=== PATIENT | female | born 1995 | race Caucasian/White ===

== ENCOUNTER 2023-04-24 20:05 | Outpatient (CLI) | payer MEDICAID, SELFPAY ==
[2023-04-24 20:20] VITALS: BMI 32.2
[2023-04-24 20:29] VITALS: BP 134/84; PULSE 55; PULSE 56; O2SAT 100
[2023-04-24 20:33] VITALS: TEMP 37.1; O2SAT 98
== END 2023-04-24 23:06 | disposition home or self-care (01) ==
LOC: WPOUT 20:19 → WP 20:19
PROVIDERS: Referring Provider Advanced Practice Midwife; Visit Provider Advanced Practice Midwife
DX: O47.1 False labor at or after 37 completed weeks of gestation (principal); Z79.82 Long term (current) use of aspirin; Z87.891 Personal history of nicotine dependence; Z3A.41 41 weeks gestation of pregnancy
CPT/HCPCS: 59025; 59050; G0378 ×2; 99221

== ENCOUNTER 2023-04-25 02:30 | Inpatient (IN) | payer MEDICAID, SELFPAY ==
[2023-04-25] VITALS (91 sets, daily range): BP systolic 88–147; BP diastolic 45–87; PULSE 45–101; RESP 147; TEMP 36.1–37.9; O2SAT 80–100; BMI 32.3
[2023-04-25] MEDS: Lactated Ringers 1,000 ML 200 ML IV ×3 (03:05→15:25)
[2023-04-25] MEDS: LACTATED RINGERS 500 ML 999 ML IV ×3 (03:05→11:30)
[2023-04-25 03:14] LABS: Absolute Lymphocyte Count 1.38 X10^3/uL (0.83-4.51); Absolute Neutrophil Count 12.9 X10^3/uL (2.0-7.7); Basophil# 0.03 X10^3/uL; Basophil% 0.2 % (0-1); Eosinophil# 0.01 X10^3/uL; Eosinophils% 0.1 % (0-5); Hematocrit 36.9 % (37-47); Hemoglobin 13.1 g/dL (12.0-15.0); Lymphocyte # 1.38 X10^3/ul (0.83-4.51); Lymphocyte % 9.3 % (19-41); Mean Corp Hgb Conc 35.5 g/dL (32-36); Mean Corpuscular Hgb 33.3 pg (27.0-32.0); Mean Corpuscular Volume 93.9 fL (81-99); Mean Platelet Vol. 9.8 fl (6.2-12.0); Monocyte# 0.44 X10^3/uL; NRBC Flagged by Analyzer 0 % (0-5); Neutrophil # 12.92 X10^3/uL (2.7-7.7); Neutrophil % 86.9 % (47-70); Platelet Count 382 K/mm3 (150-450); RBC Distribution Width CV 12.3 % (11.6-14.6); RBC Distribution Width SD 42.5 fl (35.1-43.9); Red Blood Count 3.93 M/mm3 (4.2-5.4); White Blood Count 14.9 K/mm3 (4.4-11.0)
[2023-04-25] MEDS: fentaNYL-bupivacaine (epidural) 100 ML BAG EPIDURAL ×4 (04:07→18:29)
--- NOTE | 2023-04-25 04:22 | HP.PCM.OB_ITS ---
HPI - General General Date of Admission: 04/25/23 Date of Service: 04/25/23 HPI Narrative TAYLOR CULP, is a 27 F who presents with ctxs. Maternal Data Information Final BERT: 04/18/23 [facility] Medical History (Updated 04/25/23 @ 05:04 by Yoanna Martinez) Asthma Depression Headache HPV (human papilloma virus) infection Home Medications aspirin 81 mg tablet,delayed release 81 mg PO DAILY 04/24/23 [History Last Taken 04/24/23] famotidine 20 mg tablet 20 mg PO DAILY heartburn 04/24/23 [History Last Taken 04/24/23] vit no.95-ferrous fumarate 28 mg-folic acid 800 mcg tablet () 1 tab PO DAILY 04/24/23 [History Last Taken Unknown] Allergy/AdvReac Type Severity Reaction Status Date / Time No Known Allergies Allergy Verified 04/25/23 02:06 Surgical History History of surgery Social History Smoking Status: Former smoker History Elective abortions Hx Para 0 Spontaneous abortions Hx # Term Pregnancies Ectopic pregnancies Hx # Pregnancies Multiple births # of living children NST FHR Rate Baby A Baseline: 130 Variability:: Moderate Accelerations:: 15 x 15 Decelerations:: None Uterine Activity:: Irregular Vital Signs Vital Signs Vital Signs: 04/25/23 02:12 04/25/23 02:12 04/25/23 02:12 Temperature Temperature Source Pulse Rate 74 69 Blood Pressure 114/67 BP Systolic 114 BP Diastolic 67 Pulse Ox 04/25/23 02:12 04/25/23 02:12 04/25/23 02:12 Temperature Temperature Source Temporal Pulse Rate Blood Pressure BP Systolic BP Diastolic Pulse Ox 100 100 04/25/23 02:12 04/25/23 03:13 04/25/23 03:14 Temperature 97.3 F L Temperature Source Temporal Pulse Rate Blood Pressure 147/85 H BP Systolic 147 BP Diastolic 85 Pulse Ox 04/25/23 03:14 04/25/23 03:13 04/25/23 03:45 Temperature 97.0 F L Temperature Source Pulse Rate 57 L Blood Pressure 145/84 H BP Systolic 145 BP Diastolic 84 Pulse Ox 04/25/23 03:45 04/25/23 03:45 04/25/23 03:45 Temperature Temperature Source Pulse Rate 71 59 L Blood Pressure BP Systolic BP Diastolic Pulse Ox 100 04/25/23 03:50 04/25/23 03:50 04/25/23 03:55 Temperature Temperature Source Pulse Rate 65 Blood Pressure 131/76 H BP Systolic 131 BP Diastolic 76 Pulse Ox 100 04/25/23 03:55 04/25/23 03:55 04/25/23 04:00 Temperature Temperature Source Pulse Rate 62 Blood Pressure 136/87 H BP Systolic 136 BP Diastolic 87 Pulse Ox 100 04/25/23 04:00 04/25/23 04:00 04/25/23 04:00 Temperature Temperature Source Pulse Rate 60 54 L Blood Pressure BP Systolic BP Diastolic Pulse Ox 100 04/25/23 04:05 04/25/23 04:05 04/25/23 04:06 Temperature Temperature Source Pulse Rate 77 Blood Pressure 106/57 L 101/56 L BP Systolic 106 101 BP Diastolic 57 56 Pulse Ox 04/25/23 04:06 04/25/23 04:05 04/25/23 04:09 Temperature Temperature Source Pulse Rate 66 Blood Pressure 101/52 L BP Systolic 101 BP Diastolic 52 Pulse Ox 99 04/25/23 04:09 04/25/23 04:10 04/25/23 04:10 Temperature Temperature Source Pulse Rate 76 70 Blood Pressure BP Systolic BP Diastolic Pulse Ox 100 04/25/23 04:14 04/25/23 04:14 04/25/23 04:15 Temperature Temperature Source Pulse Rate 74 76 Blood Pressure 103/59 L BP Systolic 103 BP Diastolic 59 Pulse Ox 04/25/23 04:15 04/25/23 04:20 04/25/23 04:20 Temperature Temperature Source Pulse Rate 74 Blood Pressure BP Systolic BP Diastolic Pulse Ox 100 100 Weight Weight: 200 lb Body Mass Index (BMI) 32.3 Physical Exam Const alert, oriented x3 and no apparent distress Chest inspection of chest normal Resp normal respiratory effort GI soft to palpation, non-tender and non-distended Inspection: gravid Narrative: cvx 3cm on admission Labs Labs Labs: Blood Type B POSITIVE Antibody Screen NEGATIVE Hct 36.9 % (37-47) L Hgb 13.1 g/dL (12.0-15.0) Syphilis Total Ab Non-reactive See [facility] H&P Assessment & Plan (1) 41 weeks gestation of : COMMENT: PLAN: Plan Admit to L&D Expectant management Pain - epidural as desired GBS negative EFW - less than 4500g
[2023-04-25 05:12] LABS: Syphilis Antibodies Non-reactive
--- NOTE | 2023-04-25 08:12 | PCM.PN.BLA ---
Progress Note Patient seen at bedside. Comfortable with epidural anesthesia. Physical Exam Const alert, oriented x3 and no apparent distress General Appearance: cooperative Orientation / Consciousness: awake Exam Limitations: no limitations HEENT normocephalic Head and Scalp: normal to inspection Eyes General Eye: normal appearance of both eyes Neck full ROM and no lymphadenopathy Lymph Lymphatic: no lymphadenopathy noted Chest inspection of chest normal Resp normal respiratory effort, normal air movement and clear to auscultation bilaterally Effort and Inspection: able to speak in complete sentences and symmetric chest movement Cardio regular rate and regular rhythm GI normal to inspection, nondistended, normoactive bowel sounds Manual OB Exam: presentation cephalic, dilated 4, effaced 80 and station 0 Amniotic Fluid: clear amniotic fluid Back/Spine normal ROM Extremity full ROM and no calf tenderness Skin no rashes or lesions noted General Skin Exam: no breakdown Neuro oriented x3 and CN's II-XII intact bilaterally Psych mental status grossly normal and thought process normal Assessment & Plan Assessment/Plan (1) 41 weeks gestation of : (2) Spontaneous onset of labor: (3) Rubella non-immune status, antepartum: PLAN: Plan CE- 5/70/-2 GBS negative AROM for clear/bloody fluid Start Pitocin at 2 mu/min and increase per orders Anticipate
[2023-04-25] MEDS: Oxytocin 15 Units/NS 250ml 15 UNITS/250 ML IV.SOLN 2 UNITS IV (08:20)
[2023-04-25] MEDS: Ondansetron 4 MG/2 ML Vial IV (08:37)
--- NOTE | 2023-04-25 13:00 | PCM.PN.OB ---
Subjective Subjective Patient seen at bedside. Remains comfortable with epidural. Objective Data Objective Data Vital Signs: Vital Signs Temp Pulse BP Pulse Ox 97.4 F L 55 L 106/56 L 96 04/25/23 12:01 04/25/23 12:03 04/25/23 12:03 04/25/23 10:54 Weight: 200 lb Body Mass Index (BMI) 32.3 Intake & Output: Intake and Output for Last 24 Hours 04/23/23 04/24/23 04/25/23 23:59 23:59 23:59 Intake Total 2715.60 / 2715.60 Output Total 250 / 250 Balance 2465.60 / 2465.60 Lab / Micro Data 04/25/23 03:05 Labs: Laboratory Results - last 24 hr 04/25/23 03:05: WBC 14.9 H, RBC 3.93 L, Hgb 13.1, Hct 36.9 L, MCV 93.9, MCH 33.3 H, MCHC 35.5, RDW Std Deviation 42.5, RDW Coeff of Silverio 12.3, Plt Count 382, MPV 9.8, Immature Gran % (Auto) 0.500, Neut % (Auto) 86.9 H, Lymph % (Auto) 9.3 L, [place] % (Auto) 3.0, Eos % (Auto) 0.1, Baso % (Auto) 0.2, Absolute Neuts (auto) 12.9 H, Absolute Lymphs (auto) 1.38, Nucleated RBC % 0, Syphilis Total Ab Non-reactive, Blood Type B POSITIVE, Antibody Screen NEGATIVE Assessment & Plan (1) Rubella non-immune status, antepartum: (2) Spontaneous onset of labor: (3) 41 weeks gestation of : COMMENT: PLAN: Plan Cat.2 tracing with occasional late decelerations that resolve with position change CE 7///-1 Continue Pitocin IV per policy Pain control Anticipate
--- NOTE | 2023-04-25 20:19 | PLAC_PTH ---
PATIENT: TAYLOR CULP LOC: WP U#:[id number] AGE/SX: 27/F ROOM: [facility] RE04/25/[address]: Kristy Washburn CNM : 1995 BED: 1 DIS: 04/27/2023 SPEC #: [id number] RECD: 04/26/23 00:27 STATUS: HAILE KAILYN #: [id number] ABHIJEET: 04/25/23 20:[address]: Kristy Washburn DEPT: SURGICAL PATHOLOGY RECD BY: Tyson Pope ENTERED: 04/26/23 08:12 SP TYPE: PLACENTA OTHR DR: No Primary Care Phys Tissues: Placenta, NOS Procedures: Surgery Specimen Level V HEADER OPERATION: Vaginal delivery PRE-OP DIAGNOSIS: Maternal temperature 100.3, meconium stained TISSUE SUBMITTED: Placenta MICROSCOPIC DIAGNOSIS Hernández placenta (424 gm): Umbilical cord - trivascular with no evidence of inflammation. Placental membranes - acute chorionitis and acute deciduitis. Placental disc - mildly increased intraparenchymal fibrin plaques and focal French-Arsen change. AM:steffany 04/27/2023 MICROSCOPIC DESCRIPTION Slides are reviewed. GROSS DESCRIPTION SPECIMEN: PLACENTA / CLINICAL INFORMATION: A. Weight: kg B. Gestational Age: 41 weeks C. Sex: Male PLACENTAL WEIGHT (POST FIXATION): 424 gm PLACENTAL DIMENSIONS: 18.0 x 17.0 x 2.5 cm PLACENTAL SHAPE: Usual ovoid PLACENTAL WEIGHT FOR GESTATIONAL AGE: Within 10-99th percentile MEMBRANES - Present A. Insertion: Marginal B. Site of rupture from edge: 4.5 cm from edge of placental disc C. Color of membrane: Bejarano-brantley D. Abnormalities: None UMBILICAL CORD - Present A. Color: Bejarano-brantley B. Insertion: Near central C. Length: 35.0 cm D. Diameter: 1.2 cm E. Number of vessels: Three F. Abnormalities: None PLACENTAL DISC - Present A. Color of surface: Bejarano-brantley B. surface abnormalities: None C. Maternal cotyledons: Intact with minimal tears D. Attached retro placental clot: No clot E. Cut surface: Dark red and spongy F. Lesions: None G. Separate clot: 7.0 x 6.0 x 2.5 cm SECTIONS SUBMITTED: 1. Umbilical cord ( end notched) 2. Umbilical cord, placental end 3. Membrane roll 4. Placental disc, and maternal surfaces 5. Placental disc, and maternal surfaces 6. Placental disc, and maternal surfaces 7. Additional placental membranes AM:steffany 04/26/2023 TC:2 CPT: 07738
[2023-04-25] MEDS: Oxytocin 15 Units/NS 250ml 15 UNITS/250 ML IV.SOLN 83 UNITS IV (20:35)
--- NOTE | 2023-04-25 21:04 | EX.PCM.OBRPT ---
Assessment & Plan (1) (spontaneous vaginal delivery): (2) Rubella non-immune status, antepartum: (3) Laceration, obstetrical, first degree: Maternal Data Information BERT Calculator Estimated Delivery Date Method Current WG Current Estimate 04/18/23 Manual 41w 0d Vaginal Delivery Maternal Presentation Maternal Presentation: - (spontaneous onset of labor) Maternal Presentation: at 41.0 weeks gestation that presented in spontaneous onset of labor. Type of Induction: Pitocin (augmentation) and Amniotomy (agumentation) Operative Information Date of Procedure: 04/25/23 Pre-Operative Diagnosis: Term gestation, Spontaneous onset of labor Post-Operative Diagnosis: , Live male infant Surgery / Procedure Performed: Spontaneous Vaginal Delivery Type of Anesthesia: Epidural Drain: Arango to straight drain Estimated Blood Loss: 200 Time of Delivery: 20:19 Findings Description of Procedure: Provided bedside support to patient during pushing. With good maternal effort, head delivered followed by anterior shoulder and remainder of infant body without downward traction. Large amount of terminal meconium noted. Vigorous male placed on maternal abdomen and was attended to by nursing staff. Pitocin IV started for active management of the third stage of labor. 3 vessel cord clamped and cut after delay by FOB and infant placed skin to skin with patient. Placenta delivered spontaneously and intact. Placenta meconium stained. Fundus firm 2 below U. First degree laceration repaired in usual fashion using 3-0 Vicryl Rapid. Hemostasis obtained. Vaginal sweep completed by me. EBL 200 cc. APGARS 8/9. Placenta sent to pathology due to meconium stained and patient's most recent temperature of 100.3F. [employer] notified. Patient and bonding well at this time. Dr. Knight notified of delivery. Presentation: Vertex Amniotic Membrane Rupture Type: Artificial Time of Membrane Rupture: 0757 Amniotic Fluid Description: Clear and Thick meconium (at delivery) Placental Delivery Description: Spontaneous Placenta Disposition: Sent to Pathology Cord Vessel Description: 3 Vessels Cord Entanglement: None A Gender: Male (1 minute): 8 (5 minute): 9 Delayed Cord Clamping: Yes Post Vaginal Delivery Medications Given After Delivery: IV Pitocin Episiotomy Description: None Laceration: Vaginal Extension/lac and 1st degree Complication Complications: None
[2023-04-25] MEDS: Acetaminophen 500 MG Tablet 1000 MG PO (23:19)
[2023-04-25] MEDS: Benzocaine/Lanolin/Aloe Vera 1 SPRAY EACH TOPICAL (23:34)
[2023-04-26 02:10] LABS: Pathology Specimen OB SEE PATHOLOGY REPORT
[2023-04-26 04:04] VITALS: BP 111/67; PULSE 94; RESP 14
--- NOTE | 2023-04-26 07:12 | PCM.PN.OB ---
Subjective Subjective Patient seen at bedside. Feeling good. with support. Syringe feeding. Ambulating and voiding without difficulty. Denies any pain. Objective Data Objective Data Vital Signs: Vital Signs Temp Pulse Resp BP Pulse Ox O2 Del Method 98.6 F 94 14 111/67 97 Room Air 04/25/23 23:35 04/26/23 04:04 04/26/23 04:04 04/26/23 04:04 04/25/23 23:35 04/26/23 04:04 Oxygen Delivery Method Room Air Weight: 200 lb Body Mass Index (BMI) 32.3 Intake & Output: Intake and Output for Last 24 Hours 04/24/23 04/25/23 04/26/23 23:59 23:59 23:59 Intake Total 5200.00 / 5200.00 Output Total 850 / 950 450 / 450 Balance 4350.00 / 4250.00 -450 / -450 Lab / Micro Data 04/25/23 03:05 ROS Eyes Eyes: Denies blurry vision, change in vision or spots in vision ENT HEENT: Denies dizziness or headache(s) Cardiovascular Cardiovascular: Denies abdominal pain, chest pain or dyspnea Respiratory/Chest Respiratory/Chest: Denies cough, dyspnea, shortness of breath at rest or shortness of breath with exertion Gastrointestinal Gastrointestinal: Denies abdominal pain, diarrhea or vomiting Genitourinary Genitourinary: Denies change in urinary stream, difficulty urinating or dysuria Musculoskeletal Musculoskeletal: Reports none Integumentary Integumentary: Denies rash Neurologic Neurologic: Denies dizziness, headache(s), memory loss or weakness Physical Exam Const alert and no apparent distress General Appearance: cooperative and comfortable Exam Limitations: no limitations HEENT normocephalic Eyes General Eye: normal appearance of both eyes Neck full ROM General: normal visual inspection Chest Chest: symmetrical chest wall rise Resp normal respiratory effort and normal air movement Effort and Inspection: symmetric chest movement Auscultation: clear to auscultation bilaterally Cardio regular rate and regular rhythm GI normal to inspection, nondistended, normoactive bowel sounds Back/Spine normal ROM Extremity full ROM and no calf tenderness General Extremity: normal exam except as noted Skin no rashes or lesions noted Neuro CN's II-XII intact bilaterally Psych mental status grossly normal Assessment & Plan (1) Laceration, obstetrical, first degree: (2) (spontaneous vaginal delivery): (3) Care and examination of lactating mother: PLAN: Plan PPD 1 Routine care Breast feeding support Pain control Anticipate discharge home tomorrow
[2023-04-26 07:51] VITALS: BP 108/63; PULSE 76; RESP 16; TEMP 36.9; O2SAT 98
[2023-04-26] MEDS: Acetaminophen 500 MG Tablet 1000 MG PO (09:07)
[2023-04-26] MEDS: Prenatal Vits Tablet 1 TABLET PO (10:03)
[2023-04-26 11:55] VITALS: BP 108/62; PULSE 72; RESP 16; TEMP 36.6; O2SAT 98
[2023-04-26 16:14] VITALS: BP 105/63; PULSE 61; RESP 16; TEMP 36.7; O2SAT 99
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
[2023-04-26 20:47] VITALS: BP 121/73; PULSE 67; RESP 16; TEMP 36.7
[2023-04-26] MEDS: Benzocaine/Lanolin/Aloe Vera 1 SPRAY EACH TOPICAL (21:37)
[2023-04-27 01:50] VITALS: BP 117/77; PULSE 85; RESP 18; TEMP 36.4; O2SAT 98
[2023-04-27 08:18] VITALS: BP 118/71; PULSE 72; RESP 16; TEMP 36.5
--- NOTE | 2023-04-27 09:38 | PCM.PROGNOTE ---
Subjective Subjective patient seen at bedside, doing well. Patient reports good pain control. lochia mild. Objective Data Objective Data Vital Signs: Vital Signs Temp Pulse Resp BP Pulse Ox O2 Del Method 97.7 F L 72 16 118/71 98 Room Air 04/27/23 08:18 04/27/23 08:18 04/27/23 08:18 04/27/23 08:18 04/27/23 01:50 04/27/23 01:50 Oxygen Delivery Method Room Air Weight: 90.718 kg Body Mass Index (BMI) 32.3 Intake & Output: Intake and Output for Last 24 Hours 04/25/23 04/26/23 04/27/23 23:59 23:59 23:59 Intake Total 5200.00 / 5200.00 Output Total 850 / 950 450 / 450 Balance 4350.00 / 4250.00 -450 / -450 Lab / Micro Data 04/25/23 03:05 Physical Exam Narrative abd: soft, fundus firm. Const alert and oriented x3 General Appearance: cooperative HEENT normocephalic Neck General: normal visual inspection GI soft to palpation and non-distended GI Narrative: Fundus firm Extremity normal to inspection and no calf tenderness Skin no rashes or lesions noted Neuro oriented x3 and CN's II-XII intact bilaterally Psych mental status grossly normal
--- NOTE | 2023-04-27 09:41 | DCINST_ITS ---
Discharge Instructions Diet Discharge Diet: No restrictions Activity May resume sexual activity in: 6-8 weeks Dressing / Incision Call your doctor if you observe: Fever of 101 or Higher, Inability to urinate, Using more than 1 pad per hour and Uncontrolled pain Follow Up Care Please Follow Up With: Lashaun Prakash MD When: 1-2 weeks post and again at 6 weeks post . [phone] Test Results: Test results from this visit will be discussed in further detail at your follow- up appointment, if applicable. Discharge Plan Admission Admit Date/Time: 04/25/23 02:30 Attending Provider: Kristy Washburn Primary Care Provider: Care PhysicianBrittani Primary Discharge Orders/Prescriptions Prescriptions: No Action aspirin 81 mg tablet,delayed release (DR/EC) 81 mg PO DAILY Patient Comments: take 1 tablet by mouth once daily famotidine 20 mg tablet 20 mg PO DAILY Patient Comments: take 1 tablet by mouth twice a day PNV cmb#95-ferrous fumarate-FA [] 28 mg iron- 800 mcg tablet 1 tab PO DAILY Referrals / Follow Up: Care Physician,No Primary [Primary Care Provider] - Disposition Disposition (needs filled in before D/C Order can be placed): Home, Self Care
[2023-04-27] MEDS: Prenatal Vits Tablet 1 TABLET PO (10:11)
--- NOTE | 2023-04-27 10:43 | CASEMGMT ---
Social Work Labor and Delivery Unit ? Summary:?Follow up regarding MOB mental health and psychotropic medication history. Family preparing for discharge. ? Assessment:Sw presented to bedside, reintroduced self to MOB and FOB who were present. Baby asleep is bedside crib. Sw explained she had some follow up questions from yesterdays conversation. Sw asked MOB if she worked with a psychiatrist to wean herself off of her prescribed psychotropic medications. MOB stated that she did not work with anyone, she just quit taking them cold turkey because she did not like taking so many pills. Sw asked MOB if she is receptive to getting connected to a mental health therapist to help her during this period. MOB stated that she has intentions of calling to get an appointment scheduled once she is discharged to home today. Sw asked MOB if she still has the list of resources that sw provided for her. MOB said that she does have the list. MOB confirmed that she will also be making a call to [facility] to get an appointment scheduled with them now that the baby was born. ?? - Nursing staff report no concerns over night. Parents have done well with baby and MOB is still doing great breast feeding. ? Intervention:?Due to both parents mental health history and MOB disengagement with mental health services/ taking herself off of her mental health medications- sw made decision to make referral to [facility] for dependency reasons. Swspoke to hotline screener, Adeline Schmitz. ? Plan:??MOB and baby to be discharged today. ? No other services requested or indicated. Harshad Zazueta, SQL BI DEVELOPER, REGISTRATION MANAGER
== END 2023-04-27 11:37 | disposition home or self-care (01) | DRG 560 ==
LOC: WPOUT 02:36 → WP 02:36
PROVIDERS: Obstetrics & Gynecology; Admitting Provider Advanced Practice Midwife; Visit Provider Advanced Practice Midwife
DX: O76 Abnormality in fetal heart rate and rhythm complicating labor and delivery (principal); Z37.0 Single live birth; O48.0 Post-term pregnancy; O70.0 First degree perineal laceration during delivery; O77.0 Labor and delivery complicated by meconium in amniotic fluid; Z3A.41 41 weeks gestation of pregnancy; Z87.891 Personal history of nicotine dependence
CPT/HCPCS: 59025; 59050; 85025; 86780; 86850; 86900; 86901; 88307; 99221; J7120; G0378; J2405